=== PATIENT | male | born 1965 | race American Indian/Alaskan Native ===

== ENCOUNTER 2016-09-13 21:47 | Observation (INO) | payer SELFPAY ==
[2016-09-13 21:57] VITALS: BP 128/86; PULSE 90; TEMP 97.6; O2SAT 96
--- NOTE | 2016-09-13 22:28 | C.PDOC ---
History Of Present Illness The patient, a 50 y/o male, presents to the ED for evaluation of alcohol intoxication. Patient states, " I think I am in virtual reality." Additional history limited secondary to patient's current state of intoxication. LIMITED DUE TO INTOX "I THINK I AM IN VIRTUAL REALITY". +ETOH HEALTH WORKER ROS UTO EXAM +GROSS INTOX, NONTOXIC PSYCH CALM COOPERATIVE, +INTOX NEURO NO GROSS FOCAL DEF, LIMITED DUE TO INTOX Time Seen by Provider: 09/13/16 22:16 Chief Complaint (Nursing): Substance Abuse History Per: Patient History/Exam Limitations: intoxication Onset/Duration Of Symptoms: Unknown Current Symptoms Are (Timing): Still Present Modifying Factor(s): Alcohol Additional History Per: Patient Past Medical History Reviewed: Historical Data, Nursing Documentation, Vital Signs Vital Signs: Last Vital Signs Temp 97.6 F 09/13/16 21:55 Pulse 90 09/13/16 21:55 Resp 18 09/13/16 21:55 BP 128/86 09/13/16 21:55 Pulse Ox 96 09/13/16 23:46 - Medical History PMH: Back Problems (hx back surgery) Surgical History: No Surg Hx Family History: States: Unknown Family Hx - Social History Hx Tobacco Use: No Hx Alcohol Use: Yes Hx Substance Use: No - Immunization History Hx Tetanus Toxoid Vaccination: No Hx Influenza Vaccination: No Hx Pneumococcal Vaccination: No Review Of Systems Review Of Systems: ROS cannot be obtained secondary to pt's inabilty to answer questions. Physical Exam - Physical Exam Appears: Non-toxic, Other (+grossly intoxicated ) Skin: Normal Color, Warm, Dry Head: Atraumatic Eye(s): bilateral: Normal Inspection Oral Mucosa: Moist Neck: Supple Chest: Symmetrical, No Deformity, No Tenderness Cardiovascular: Rhythm Regular Respiratory: Normal Breath Sounds Extremity: Normal ROM, Capillary Refill (less than 2 seconds) Neurological/Psych: Other (calm, cooperative. +intoxication. no gross focal deficits. limited due to intoxication ) ED Course And Treatment O2 Sat by Pulse Oximetry: 96 (on RA) Pulse Ox Interpretation: Normal Progress - Data Reviewed Data Reviewed: Old records ED OBSERVATION Discharge: Yes Date of observation admission: 09/13/16 Time of observation admission: 22:15 - Observation admission statement Patient is being placed in observation because:: INTOXI - Goals of Observation Goals of observation are:: SOBRIETY - Progress Note Progress Note: 09/13/16 23:45 INCREASED AGITATION, THREATENING TO KILL NURSING STAFF. PT REQUIRING MULT SECURITY PRESENT TO RESTRAIN. PT PERSIST INTOX, UNCOOPERATIVE W VERBAL INTERVENTION 09/14/16 05:52 CLEAR SPEECH THOUGHT STEADY GAIT. NO ACUTE INTOX Disposition Counseled Patient/Family Regarding: Studies Performed, Diagnosis, Need For Followup - Disposition Disposition: HOME/ ROUTINE Disposition Time: 06:06 Condition: IMPROVED - Clinical Impression Clinical Impression: Alcoholic intoxication - Scribe Statement The provider has reviewed the documentation as recorded by the Scribe (Anjana Monson) Provider Attestation: All medical record entries made by the Scribe were at my direction and personally dictated by me. I have reviewed the chart and agree that the record accurately reflects my personal performance of the history, physical exam, medical decision making, and the department course for this patient. I have also personally directed, reviewed, and agree with the discharge instructions and disposition.
[2016-09-14 06:28] VITALS: RESP 20
== END 2016-09-14 06:07 | disposition home or self-care (01) ==
LOC: C.ER 21:47 → C.9OBSV 22:15
PROVIDERS: ADMIT Emergency Medicine; ATTEND Emergency Medicine
DX: F10.129 Alcohol abuse with intoxication, unspecified (principal)
CPT/HCPCS: 99283; G0378; J3486